=== PATIENT | female | born 1940 | race Caucasian/White ===

== ENCOUNTER → 2017-06-19 10:55 | Outpatient (CLI) | payer MEDICARE, OTHER, SELFPAY | PROVIDERS: Family Provider Internal Medicine; PCP Internal Medicine; Visit Provider Internal Medicine | DX: R00.2 Palpitations (principal) | CPT/HCPCS: 93225; 93226 ==

== ENCOUNTER → 2017-07-18 10:22 | Outpatient (CLI) | payer MEDICARE, OTHER, SELFPAY ==
[2017-07-18 11:48] LABS: Absolute Lymphocyte Count 2.29 X10^3/ul (0.83-4.51); Absolute Neutrophil Count 3.5 X10^3/uL (2.0-7.7); Basophil# 0.03 X10^3/uL; Basophil% 0.5 % (0-1); Eosinophil# 0.11 X10^3/uL; Eosinophils% 1.7 % (0-5); Hematocrit 42.7 % (37-47); Hemoglobin 13.5 g/dl (12.0-15.0); Lymphocyte # 2.29 X10^3/ul (4.0); Mean Corp Hgb Conc 31.6 g/gl (32-36); Mean Corpuscular Hgb 28.8 pg (27.0-32.0); Monocyte# 0.64 X10^3/uL; Monocyte% 9.8 % (0-10); Neutrophil # 3.46 X10^3/uL (2.7-7.7); Neutrophil % 52.8 % (47-70); Platelet Count 135 K/mm3 (150-450); RBC Distribution Width CV 13.7 % (11.6-14.6); RBC Distribution Width SD 45.4 fl (35.1-43.9); Red Blood Count 4.69 M/mm3 (4.2-5.4); White Blood Count 6.5 K/mm3 (4.4-11.0)
[2017-07-18 11:49] LABS: Differential Indicated SCAN CRITERIA MET; POSITIVE COUNT NO; POSITIVE DIFFERENTIAL NO; POSITIVE MORPHOLOGY YES
== END ==
PROVIDERS: Family Provider Internal Medicine; PCP Internal Medicine; Visit Provider Internal Medicine
DX: D69.6 Thrombocytopenia, unspecified (principal)
CPT/HCPCS: 36415; 85025

== ENCOUNTER → 2017-08-08 09:18 | Outpatient (CLI) | payer MEDICARE, OTHER, SELFPAY ==
--- NOTE | 2017-08-08 09:22 | BI_ITS ---
MAMMOGRAPHY - BILATERAL SCREENING REASON FOR EXAM: Female, 76 years old. Routine annual screening examination. PERTINENT HISTORY: Daughter with breast cancer. Sister with breast cancer. TECHNIQUE: Digital bilateral breast miguelina (3D mammographic acquisition) in the CC and MLO projections. 2-D mediolateral oblique (MLO) and craniocaudad (CC) views of both breasts were obtained. CAD: Full Field Digital Mammography with Computer Added Detection was performed. COMPARISON: Comparison is made with prior study dated August 04, 2016 and August 04, 2015. FINDINGS: Breast Composition: The breasts are heterogeneously dense, which may obscure small masses. There are no dominant masses or suspicious calcifications. No other significant abnormalities are identified. There has been no significant change since the prior study. BI/SCREENING MAMM (CAD), BILAT IMPRESSION: Stable bilateral screening mammogram. Yearly follow-up mammogram recommended. (A) ASSESSMENT CATEGORY: BIRADS Category 1: Negative. A letter regarding these results will be sent to the patient by the facility within 30 days. Approximately 10% of breast cancers are not detected by mammography. A normal mammogram should not delay biopsy of a clinically suspicious abnormality. [id number] Electronically Signed: Chris Romero MD at 15:00 EDT Tel [phone], Service support ,
--- NOTE | 2017-08-08 09:25 | BD_ITS ---
STUDY: DUAL ENERGY X-RAY ABSORPTIOMETRY / DXA REASON FOR EXAM: Female, 76 years old. The patient is postmenopausal. Loss of height. TECHNIQUE: Bone Mineral Density (BMD) measurements of lumbar spine and bilateral hips were obtained. COMPARISON: Comparison is made with prior study dated August 04, 2015. FINDINGS: Lumbar Spine (L1-L4): g/cm2 (1.021) / T-score (-1.5) / Z-score (0.3) Findings are suggestive of osteopenia with a moderate fracture risk. Left Femur Total: g/cm2 (0.819) / T-score (-1.5) / Z-score (0.4) Left Femoral Neck: g/cm2 (0.670) / T-score (-2.6) / Z-score (-0.6) Right Femur Total: g/cm2 (0.795) / T-score (-1.7) / Z-score (0.2) Right Femoral Neck: g/cm2 (0.700) / T-score (-2.4) / Z-score (-0.4) The T-Scores on the most recent prior examination were: Lumbar Spine (L1-L4): There has been improvement of bone density since the previous examination. Left Femur Total: which represents an improvement of 2.2%. Right Femur Total: which represents an improvement of 2.1%. BD/Dexa Bone Density Study IMPRESSION: The patient is considered osteoporotic as outlined below according to World Giorgio Organization (WHO) criteria with a high fracture risk. There has been improvement of bone density since the previous examination. Reference Information: The T-score is the number of standard deviations above or below the standard which is normal for young adults at their peak bone mineral density. The World Health Organization (WHO) interprets the T-scores as follows: Above -1 Normal bone density Between -1 and -2.5 Osteopenia Equal to / or below -2.5 Osteoporosis As a practical clinical guideline, osteopenia may be graded as follows: Mild -1 through -1.5 Moderate -1.6 through -2.0 Severe -2.1 through -2.4 The Z-score is the number of standard deviations above or below age-matched controls. A Z-score of less than -1.5 would be considered abnormal. References: 1. NIH Osteoporosis and Related Bone Diseases http://www.osteo.org 2. International Society for Clinical Densitometry http://www.iscd.org 3. National Osteoporosis Foundation http://www.nof.org Electronically Signed: Chris Romero MD at 8:34 EDT Tel [phone], Service support ,
== END ==
PROVIDERS: Family Provider Internal Medicine; PCP Internal Medicine; Visit Provider Nurse Practitioner
DX: M81.0 Age-related osteoporosis without current pathological fracture (principal); Z12.31 Encounter for screening mammogram for malignant neoplasm of breast
CPT/HCPCS: 77063; 77067; 77080

== ENCOUNTER → 2017-09-06 09:52 | Outpatient (CLI) | payer MEDICARE, OTHER, SELFPAY ==
[2017-09-06 10:00] VITALS: BP 168/80; PULSE 84; RESP 16; TEMP 36.7; O2SAT 97; BMI 23.8
[2017-09-06] MEDS: DENOSUMAB 60 MG/ML ML SQ (10:06)
== END ==
PROVIDERS: Family Provider Internal Medicine; PCP Internal Medicine; Visit Provider Nurse Practitioner
DX: M81.0 Age-related osteoporosis without current pathological fracture (principal)
CPT/HCPCS: 96372; J0897

== ENCOUNTER → 2018-03-12 13:26 | Outpatient (CLI) | payer MEDICARE, SELFPAY ==
[2018-03-12] MEDS: DENOSUMAB 60 MG/ML ML SQ (13:47)
[2018-03-12 13:51] VITALS: BP 150/86; PULSE 95; RESP 16; TEMP 36.7; O2SAT 99
== END ==
PROVIDERS: Family Provider Internal Medicine; PCP Internal Medicine; Visit Provider Nurse Practitioner
DX: M81.0 Age-related osteoporosis without current pathological fracture (principal)
CPT/HCPCS: 96372; J0897

== ENCOUNTER → 2018-03-13 14:41 | Outpatient (CLI) | payer MEDICARE, SELFPAY ==
--- NOTE | 2018-03-13 14:46 | RAD_ITS ---
STUDY: X-RAY - RIGHT FOOT CLINICAL: Female, 77 years old. No injury. Pain across top of foot. TECHNIQUE: 3 view(s) of the foot. COMPARISON: None. FINDINGS: Severe osteopenia. Mild DJD interphalangeal joints of each digit. Mild 1st digit metatarsophalangeal joint hallux valgus, small bunion, mild DJD of the articulation. There is mild DJD of the intertarsal articulations. Preserved arch. Plantar calcaneal spur with mild calcifications in the proximal plantar aponeurosis. Possibly sequela of plantar fasciitis. There are prominent peripheral arterial calcifications, most notable in the dorsalis pedis artery. There is no apparent soft tissue swelling. RAD/Foot min 3 Views IMPRESSION: Chronic degenerative features as described above. No acute radiographic abnormality is evident. Electronically Signed: Heriberto Dennison MD at 15:37 EST Tel , Service support ,
--- OUTSIDE RECORDS SUMMARY | 2018-05-15 20:50 | XMS RPT_ITS ---
:1940 Author Organization OHIP Support Name Relationship Address Phone CHRISTA FISCHER Unavailable Unavailable + JOSEPH FISCHER Unavailable [address] + [place] [address] R Unavailable Unavailable Unavailable CHRISTA FISCHER Unavailable Unavailable + JOSEPH FISCHER Unavailable [address] + [place] [address] R Unavailable Unavailable Unavailable ANYI CABRERA Unavailable [address] + [place] [address] JOSEPH FISCHER Unavailable [address] + [place] [address] R Unavailable Unavailable Unavailable ANYI CABRERA Unavailable [address] + [place] [address] JOSEPH FISCHER Unavailable [address] + [place] [address] R Unavailable Unavailable Unavailable DEBORAH ANYI Unavailable [address] + [place] [address] JOSEPH FISCHER Unavailable [address] + [place] [address] R Unavailable Unavailable Unavailable DEBORAH ANYI Unavailable [address] + [place] [address] ROYCE FISCHERIE Unavailable [address] + [place] [address] R Unavailable Unavailable Unavailable DEBORAH ANYI Unavailable [address] + [place] [address] ROYCE FISCHERIE Unavailable [address] + [place] [address] R Unavailable Unavailable Unavailable Care Team Providers Name Role Phone Kortney Montero Attending Unavailable Ryann Peralta MD Referring Unavailable Ciesa, Kortney Consulting Unavailable Ciesa, Kortney Attending Unavailable Ciesa, Kortney Referring Unavailable Luis, Margie Primary Care Unavailable Ciesa, Kortney Attending Unavailable Ciesa, Kortney Referring Unavailable Luis, Margie Primary Care Unavailable Luis, Margie Attending Unavailable Luis, Margie Referring Unavailable Luis, Margie Primary Care Unavailable Yong Drapre Attending Unavailable Luis, Margie Referring Unavailable Luis, Margie Attending Unavailable Luis, Margie Referring Unavailable Luis, Margie Primary Care Unavailable Ciesa, Kortney Attending Unavailable Luis, Margie Primary Care Unavailable Ciesa, Kortney Attending Unavailable Ciesa, Kortney Referring Unavailable Luis, Margie Primary Care Unavailable PROBLEMS PROBLEMS DATE TYPE CONDITION / CODE ATTENDING STATUS SOURCE 08/08/2017 Unknown M81.0 - Kortney Montero Active [place] 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 Hospital without current Repository pathological fracture / M81.0(ICD-10) 08/08/2017 Unknown Z12.31 - Encounter Kortney Montero Zakiya [facility]anoster for screening [facility] mammogram for Hospital malignant neoplasm Repository of breast / Z12.31(ICD-10) 07/18/2017 Unknown D69.6 - Luis Active [place] Thrombocytopenia, Margie Community unspecified / Hospital D69.6(ICD-10) Repository 07/06/2017 Unknown R00.2 - Yong Draper Active [place] Palpitations / Community R00.2(ICD-10) Hospital Repository PROCEDURES PROCEDURES No Procedure Records FoundRESULTS RESULTS FOOT MIN 3 VIEWS Observed: 03/13/2018 Status: F Source: [place] 2:46 PM [facility] REPOSITORY [facility] Services [address] [place] [address] Foot min 3 Views MR#: [id number] Acct: [id number] Name: GADIEL CABRERA Rep #: [id number] : 1940 F 77 From: Heriberto Dennison MD PCP: Margie Smith DO Status: REG CLI Study: Foot min 3 Views Date of Exam: 03/13/18 Exam# [id number] Ordering Dr: Kortney Montero BREAKER TENDER-C STUDY: X-RAY - RIGHT FOOT CLINICAL: Female, 77 years old. No injury. Pain across top of foot. TECHNIQUE: 3 view(s) of the foot. COMPARISON: None. FINDINGS: Severe osteopenia. Mild DJD interphalangeal joints of each digit. Mild 1st digit metatarsophalangeal joint hallux valgus, small bunion, mild DJD of the articulation. There is mild DJD of the intertarsal articulations. Preserved arch. Plantar calcaneal spur with mild calcifications in the proximal plantar aponeurosis. Possibly sequela of plantar fasciitis. There are prominent peripheral arterial calcifications, most notable in the dorsalis pedis artery. There is no apparent soft tissue swelling. RAD/Foot min 3 Views IMPRESSION: Chronic degenerative features as described above. No acute radiographic abnormality is evident. Electronically Signed: Heriberto Dennison MD at 15:37 EST Tel , Service support , CC: Kortney Montero BREAKER TENDER; Margie Smith DO Cable Television Program Director: Signed SCREENING MAMM (CAD), Observed: 08/08/2017 Status: F Source: [facility] 9:22 AM [facility] [place] [facility] Imaging Services [address] [place] [address] SCREENING MAMM (CAD), BILAT MR#: [id number] Acct: [id number] Name: GADIEL CABRERA Rep #: [id number] : 1940 F 76 From: Chris Romero MD PCP: Margie Smith DO Status: REG CLI Study: SCREENING MAMM (CAD), BILAT Date of Exam: 08/08/17 Exam# [id number] Ordering Dr: Kortney Montero MAMMOGRAPHY - BILATERAL SCREENING REASON FOR EXAM: Female, 76 years old. Routine annual screening examination. PERTINENT HISTORY: Daughter with breast cancer. Sister with breast cancer. TECHNIQUE: Digital bilateral breast miguelina (3D mammographic acquisition) in the CC and MLO projections. 2-D mediolateral oblique (MLO) and craniocaudad (CC) views of both breasts were obtained. CAD: Full Field Digital Mammography with Computer Added Detection was performed. COMPARISON: Comparison is made with prior study dated August 04, 2016 and August 04, 2015. FINDINGS: Breast Composition: The breasts are heterogeneously dense, which may obscure small masses. There are no dominant masses or suspicious calcifications. No other significant abnormalities are identified. There has been no significant change since the prior study. BI/SCREENING MAMM (CAD), BILAT IMPRESSION: Stable bilateral screening mammogram. Yearly follow-up mammogram recommended. (A) ASSESSMENT CATEGORY: BIRADS Category 1: Negative. A letter regarding these results will be sent to the patient by the facility within 30 days. Approximately 10% of breast cancers are not detected by mammography. A normal mammogram should not delay biopsy of a clinically suspicious abnormality. [id number] Electronically Signed: Chris Romero MD at 15:00 EDT Tel [phone], Service support , CC: Kortney Montero NP; Margie Smith DO Cable Television Program Director: Signed DEXA BONE DENSITY Observed: 08/08/2017 Status: F Source: [place] STUDY 9:22 AM [facility] [place] [facility] Imaging Services [address] [place] [address] Dexa Bone Density Study MR#: [id number] Acct: [id number] Name: GADIEL CABRERA Rep #: [id number] : 1940 F 76 From: Chris Romero MD PCP: Luis DO,Margie Status: REG CLI Study: Dexa Bone Density Study Date of Exam: 08/08/17 Exam# [id number] Ordering Dr: Kortney Montero STUDY: DUAL ENERGY X-RAY ABSORPTIOMETRY / DXA REASON FOR EXAM: Female, 76 years old. The patient is postmenopausal. Loss of height. TECHNIQUE: Bone Mineral Density (BMD) measurements of lumbar spine and bilateral hips were obtained. COMPARISON: Comparison is made with prior study dated August 04, 2015. FINDINGS: Lumbar Spine (L1-L4): g/cm2 (1.021) / T-score (-1.5) / Z-score (0.3) Findings are suggestive of osteopenia with a moderate fracture risk. Left Femur Total: g/cm2 (0.819) / T-score (-1.5) / Z- score (0.4) Left Femoral Neck: g/cm2 (0.670) / T-score (-2.6) / Z- score (-0.6) Right Femur Total: g/cm2 (0.795) / T-score (-1.7) / Z- score (0.2) Right Femoral Neck: g/cm2 (0.700) / T-score (-2.4) / Z-score (-0.4) The T-Scores on the most recent prior examination were: Lumbar Spine (L1-L4): There has been improvement of bone density since the previous examination. Left Femur Total: which represents an improvement of 2.2%. Right Femur Total: which represents an improvement of 2.1%. BD/Dexa Bone Density Study IMPRESSION: The patient is considered osteoporotic as outlined below according to World Giorgio Organization (WHO) criteria with a high fracture risk. There has been improvement of bone density since the previous examination. Reference Information: The T-score is the number of standard deviations above or below the standard which is normal for young adults at their peak bone mineral density. The World Health Organization (WHO) interprets the T-scores as follows: Above -1 Normal bone density Between -1 and -2.5 Osteopenia Equal to / or below -2.5 Osteoporosis As a practical clinical guideline, osteopenia may be graded as follows: Mild -1 through -1.5 Moderate -1.6 through -2.0 Severe -2.1 through -2.4 The Z-score is the number of standard deviations above or below age-matched controls. A Z-score of less than -1.5 would be considered abnormal. References: 1. NIH Osteoporosis and Related Bone Diseases http://www.osteo.org 2. International Society for Clinical Densitometry http://www.iscd.org 3. National Osteoporosis Foundation http://www.nof.org Electronically Signed: Chris Romero MD at 8:34 EDT Tel [phone], Service support , CC: Kortney Montero NP; Margie Smith DO Cable Television Program Director: Signed CBC W/DIFF, AUTOMATED Collected: 07/18/2017 Status: F Source: [place] 10:29 AM [facility] [place] TYPE CODE TESTS RESULT OUT OF RANGE REFERENCE UNITS LAB L100.1000 4.4-11.0 K/mm3 Normal WBC 6.5 LAB L100.1200 4.2-5.4 M/mm3 Normal RBC 4.69 LAB L100.1300 12.0-15.0 g/dl Normal HGB 13.5 LAB L100.1400 37-47 % Normal HCT 42.7 LAB L100.1500 81-99 fL Normal MCV 91.0 LAB L100.1600 27.0-32.0 pg Normal MCH 28.8 LAB L100.1700 32-36 g/gl Low MCHC 31.6 LAB L100.1810 11.6-14.6 % Normal RDW CV 13.7 LAB L100.1820 35.1-43.9 fl High RDW SD 45.4 LAB L100.1900 150-450 K/mm3 Low PLT 135 LAB L100.2100 47-70 % Normal NEUT% 52.8 LAB L100.2200 19-41 % Normal LY% 35.0 LAB L100.2300 0-10 % Normal MONO% 9.8 LAB L100.2400 0-5 % Normal EO% 1.7 LAB L100.2500 0-1 % Normal BASO% 0.5 LAB L100.2550 0.0-0.9 % Normal IM GRAN % 0.200 Result Comment: IG% - Immature Granulocytes (promyelocytes, myelocytes and metamyelocytes) > 1% indicates that a LEFT SHIFT is Present. LAB L100.2620 2.0-7.7 X10 3/uL Normal Absolute Neut 3.5 LAB L100.2720 0.83-4.51 X10 3/ul Normal Absolute Lymph 2.29 LAB L100.4500 SMEAR Normal COMMENT Result Comment: PLATELETS SLIGHTLY DECREASED Performed By: #### L100.0100 #### [facility] [address] [place], [address] ALLERGIES ALLERGIES DATE TYPE / CODE NAME / CODE REACTION SEVERITY SOURCE 03/09/2017 Drug amoxicillin Other [place] Allergy/517756279(S /[id number] [facility]) (RXNORM) Hospital Repository 03/09/2017 Drug citalopram/ Other Unknown [place] Allergy/896734595(S [id number]( [facility]) RXNORM) Hospital Repository 03/09/2017 Miscellaneous rufen Other Unknown [place] Allergy/584553246([facility]) Hospital Repository ENCOUNTERS ENCOUNTERS ADMIT/DISCHARGE ACCOUNT ADMITTING ENCOUNTER LOCATION SOURCE NUMBER CLASS 03/13/2018 [id number] Ambulatory [place] 8 [facility] ing:HPRAD Repository 03/13/2018 [id number] Ambulatory Building:[facility] [place] Practices Repository 03/12/2018 [id number] Ambulatory [place] 9 [facility] ing:MEDOUTP Repository 09/06/2017 [id number] Ambulatory [place] 2 [facility] ing:MEDOUTP Repository 08/08/2017 [id number] Ambulatory [place] 4 [facility] ing:OPBD Repository 07/18/2017 [id number] Ambulatory [place] 7 [facility] ing:LAB Repository 06/19/2017 [id number] Ambulatory [place] 9 [facility] ing:PSN Repository 06/19/2017 [id number] Ambulatory BMSBuilding:W [place] 4 [facility] Repository PAYERS PAYERS ENCOUNTER GUARANTOR PAYER SUBSCRIBER SOURCE 03/13/2018 GADIEL E Primary GADIEL E [place] [id number] Insurance:AETNA KINCAIDDOB: [facility] Number: [id number] [id number] Repository [address]Iod: (330) Date:5960-09-31[phone] (HP) [id number] FEROZ RAMOS [address]ZU: 03/13/2018 Secondary NOT GIVENUNK [place] Insurance:SELF PAY [facility] Number: Effective Repository Date:2018-03-13 03/13/2018 Gadiel E Primary Gadiel E OHIP Practices KincaidDOB: Insurance:Aetna Life KincaidDOB: Repository [id number] [facility]/MedicarePolicy [id number] [place] Number: 1 [place], [place] [id number] [place], [place] [address]Hgv: (330) Date:0034-39-70Pwpq 85[address]Ngz: Name:[facility] [address]Rx [phone] (HP) (HP)Tel: ([phone]) FEROZ Ramos [phone]: [phone] () 03/13/2018 Secondary Gadiel E OHIP Practices Insurance:Humana/Suppl KincaidDOB: Repository [facility] [id number] Number: 1 [place] [id number] [place], [place] Date:8718-26-54Nhug [address]Cne: (330) Name:[facility] [phone] (HP) [address], [place] [address]CZ: 03/12/2018 GADIEL E Primary GADIEL E [place] [id number] Insurance:AETNA KINCAIDDOB: Community [address] MCRPolicy Number: [id number], [place] [id number] Repository [address]Sdd: (330) Date:4609-19-81CE [phone] () [id number] FEROZ RAMOS [id number]: 03/12/2018 Secondary NOT GIVENUNK [place] Insurance:SELF PAY [facility] Number: Effective Repository Date:2017-09-06 09/06/2017 ANYI L Primary GADIEL E [place] [id number] Insurance:MEDICARE KINCAIDDOB: [facility] [address] BPolicy Number: [id number], [place] [id number] Repository [address]Jbj: (330) Date:2017-08-09 [phone] () 09/06/2017 Secondary GADIEL E [place] Insurance:HUMANA KINCAIDDOB: [facility] [id number] Hospital Number: Repository [id number] Date:6219-54-09EG [address] [place] [id number]: 09/06/2017 Tertiary NOT GIVENUNK [place] Insurance:SELF PAY [facility] Number: Effective Repository Date:2017-08-09 08/08/2017 ANYI L Primary GADIEL E [place] [id number] Insurance:MEDICARE KINCAIDDOB: [facility] [address] olicy Number: [id number], [place] [id number] Repository [address]Mvk: (330) Date:2017-06-05 [phone] () 08/08/2017 Secondary GADIEL E [place] Insurance:HUMANA KINCAIDDOB: [facility] [id number] Hospital Number: Repository [id number] Date:6335-54-20QT [address] [place] [phone]: 08/08/2017 Tertiary NOT GIVENUNK [place] Insurance:SELF PAY [facility] Number: Effective Repository Date:2017-06-05 07/18/2017 ANYI L Primary GADIEL E [place] [id number] Insurance:MEDICARE KINCAIDDOB: Community [address] BPolicy Number: [id number], [place] [id number] Repository [address]Iwa: 330) Date:2017-07-18 [phone] () 07/18/2017 Secondary GADIEL E [place] Insurance:HUMANA KINCAIDDOB: [facility] [id number] Hospital Number: Repository [id number] Date:[id number] [address]CX: 07/18/2017 Tertiary NOT GIVENUNK [place] Insurance:SELF PAY [facility] Number: Effective Repository Date:2017-07-18 06/19/2017 ANYI L Primary GADIEL E [place] [id number] Insurance:MEDICARE KINCAIDDOB: Community [address] BPolicy Number: [id number], [place] [id number] Repository [address]Eos: 330) Date:2017-06-15 [phone] () 06/19/2017 Secondary GADIEL E [place] Insurance:HUMANA KINCAIDDOB: [facility] [id number] Hospital Number: Repository [id number] Date:[id number] [address]ZD: 06/19/2017 Tertiary NOT GIVENUNK [place] Insurance:SELF PAY [facility] Number: Effective Repository Date:2017-06-15 06/19/2017 ANYI L Primary GADIEL E [place] [id number] Insurance:MEDICARE KINCAIDDOB: [facility] [address] olicy Number: [id number], [place] [id number] Repository [address]Dke: 330) Date:2017-06-15 [phone] () 06/19/2017 Secondary GADIEL E [place] Insurance:HUMANA KINCAIDDOB: [facility] [id number] Hospital Number: Repository [id number] Date:2089-36-14[address]LUIFVRDDN, [place] [address]BT: 06/19/2017 Tertiary NOT GIVENUNK [place] Insurance:SELF PAY [facility]: Effective Repository Date:2017-06-19
== END ==
PROVIDERS: Family Provider Internal Medicine; PCP Internal Medicine; Referring Provider Nurse Practitioner; Visit Provider Nurse Practitioner
DX: M79.671 Pain in right foot (principal)
CPT/HCPCS: 73630

== ENCOUNTER → 2018-07-04 07:21 | Outpatient (CLI) | payer MEDICARE, SELFPAY ==
[2018-07-04 07:51] LABS: Absolute Lymphocyte Count 3.65 X10^3/ul (0.83-4.51); Absolute Neutrophil Count 3.2 X10^3/uL (2.0-7.7); Basophil# 0.04 X10^3/uL; Basophil% 0.5 % (0-1); Eosinophil# 0.22 X10^3/uL; Eosinophils% 2.8 % (0-5); Hematocrit 43.3 % (37-47); Lymphocyte # 3.65 X10^3/ul (4.0); Mean Corp Hgb Conc 32.3 g/gl (32-36); Mean Corpuscular Volume 89.8 fL (81-99); Mean Platelet Vol. 10.2 fl (6.2-12.0); Monocyte# 0.68 X10^3/uL; Monocyte% 8.8 % (0-10); Neutrophil # 3.17 X10^3/uL (2.7-7.7); Neutrophil % 40.8 % (47-70); Platelet Count 202 K/mm3 (150-450); RBC Distribution Width CV 13.4 % (11.6-14.6); RBC Distribution Width SD 43.7 fl (35.1-43.9); Red Blood Count 4.82 M/mm3 (4.2-5.4); White Blood Count 7.8 K/mm3 (4.4-11.0)
[2018-07-04 07:55] LABS: POSITIVE COUNT NO; POSITIVE DIFFERENTIAL NO; POSITIVE MORPHOLOGY NO
[2018-07-04 07:57] LABS: ALB/GLOB Ratio 1.1 RATIO (0.9-2.4); AST(SGOT) 20 U/L (15-37); Alanine Aminotransfer ALT/SGPT 24 U/L (13-56); Albumin, Serum 3.9 g/dL (3.2-5.0); Alkaline Phosphatase 63 U/L (45-117); Anion Gap 6 (5-15); BUN 21 mg/dL (7-18); Calcium,Total 8.8 mg/dL (8.5-10.1); Chloride 105 mmol/L (98-107); Creatinine, Serum 0.81 mg/dL (0.55-1.02); EST Glomerular Filtration Rate 73 mL/min (>60); Est Glom Filt Rate - Afr Amer 88 mL/min (>60); Globulin 3.4 g/dL (2.2-4.2); Glucose 102 mg/dL (74-106); Potassium 3.9 mmol/L (3.5-5.1); Protein, Total 7.3 g/dL (6.4-8.2); Sodium Level 141 mmol/L (136-145)
== END ==
PROVIDERS: Family Provider Internal Medicine; PCP Internal Medicine; Referring Provider Nurse Practitioner; Visit Provider Nurse Practitioner
DX: I10 Essential (primary) hypertension (principal)
CPT/HCPCS: 36415; 80053; 85025

== ENCOUNTER → 2018-08-09 | Outpatient (CLI) | payer MEDICARE, SELFPAY ==
--- NOTE | 2018-08-09 10:19 | BI_ITS ---
MAMMOGRAPHY - BILATERAL SCREENING REASON FOR EXAM: Female, 77 years old. Routine annual screening examination. PERTINENT HISTORY: Daughter with breast cancer. Sister with breast cancer. TECHNIQUE: Digital bilateral breast jodi (3D mammographic acquisition) in the CC and MLO projections. 2-D mediolateral oblique (MLO) and craniocaudad (CC) views of both breasts were obtained. CAD: Full Field Digital Mammography with Computer Added Detection was performed. COMPARISON: Comparison is made with prior study August 08, 2017 and August 04, 2016. FINDINGS: Breast Composition: The breasts are heterogeneously dense, which may obscure small masses. There are no dominant masses or suspicious calcifications. No other significant abnormalities are identified. There has been no significant change since the prior study. BI/SCREEN MAMM (CAD) W/JODI BILAT IMPRESSION: Stable bilateral screening mammogram. Yearly follow-up mammogram recommended. (A) ASSESSMENT CATEGORY: BIRADS Category 1: Negative. A letter regarding these results will be sent to the patient by the facility within 30 days. Approximately 10% of breast cancers are not detected by mammography. A normal mammogram should not delay biopsy of a clinically suspicious abnormality. [id number] Electronically Signed: Chris Romero, at 12:20 EDT , Service support ,
== END | disposition home or self-care (01) ==
LOC: OPBI 10:18
PROVIDERS: Family Provider Internal Medicine; PCP Internal Medicine; Referring Provider Nurse Practitioner; Visit Provider Nurse Practitioner
DX: Z12.31 Encounter for screening mammogram for malignant neoplasm of breast (principal)
CPT/HCPCS: 77063; 77067

== ENCOUNTER → 2019-02-11 10:10 | Outpatient (CLI) | payer MEDICARE, SELFPAY ==
[2017-09-06 10:00] VITALS: BMI 23.8
[2019-02-11 11:27] LABS: Absolute Lymphocyte Count 2.34 X10^3/uL (0.83-4.51); Absolute Neutrophil Count 3.8 X10^3/uL (2.0-7.7); Basophil# 0.04 X10^3/uL; Basophil% 0.6 % (0-1); Eosinophil# 0.08 X10^3/uL; Eosinophils% 1.1 % (0-5); Hematocrit 42.5 % (37-47); Hemoglobin 13.5 g/dL (12.0-15.0); Lymphocyte # 2.34 X10^3/ul (4.0); Lymphocyte % 33.4 % (19-41); Mean Corp Hgb Conc 31.8 g/dL (32-36); Mean Corpuscular Volume 91.2 fL (81-99); Monocyte# 0.72 X10^3/uL; Monocyte% 10.3 % (0-10); NRBC Flagged by Analyzer 0 % (0-5); Neutrophil % 54.3 % (47-70); POSITIVE COUNT YES; RBC Distribution Width CV 13.4 % (11.6-14.6); RBC Distribution Width SD 45.3 fl (35.1-43.9); Red Blood Count 4.66 M/mm3 (4.2-5.4)
[2019-02-11 11:35] LABS: Differential Indicated SCAN CRITERIA MET
[2019-02-11 13:12] LABS: Red Cell Morphology NORM C+C NORMAL (NORM C&C)
[2019-02-12 00:50] LABS: Platelet Estimate ADEQUATE (ADEQ)
[2019-02-12 01:04] LABS: Platelet Morphology CLUMPED
== END ==
PROVIDERS: Family Provider Internal Medicine; PCP Internal Medicine; Referring Provider Nurse Practitioner; Visit Provider Nurse Practitioner
DX: D69.6 Thrombocytopenia, unspecified (principal)
CPT/HCPCS: 36415; 85025

== ENCOUNTER → 2019-08-13 10:29 | Outpatient (CLI) | payer MEDICARE, SELFPAY ==
--- NOTE | 2019-08-13 10:32 | BI_ITS ---
MAMMOGRAPHY - BILATERAL SCREENING 3-D TOMOSYNTHESIS REASON FOR EXAM: Female, 78 years old. Routine screening PERTINENT HISTORY: FAM HX SISTER AGE 44, DAUGHTER AGE 43 -- NO SX -- BILAT MOLES MARKED. TECHNIQUE: 2-D mammograms and 3-D Tomosynthesis of the breast (s) were performed. CAD was performed. COMPARISON: 08/09/2018 FINDINGS: The breast composition is heterogeneously dense that can obscure small breast masses. Scattered benign calcifications are seen. No dense spiculated masses or suspicious microcalcifications are identified. No architectural distortion is identified. There is no skin thickening or retraction. There has been no significant change since the prior study. BI/SCREEN MAMM (CAD) W/JODI BILAT IMPRESSION: No mammographic signs of malignancy. Routine yearly mammograms recommended. ASSESSMENT CATEGORY: BIRADS Category 1: Negative. A letter regarding these results will be sent to the patient by the facility within 30 days. FOLLOW UP RECOMMENDATION: Yearly follow up mammogram recommended. (A) Approximately 10% of breast cancers are not detected by mammography. A normal mammogram should not delay biopsy of a clinically suspicious abnormality. Electronically Signed: Ahsan Smith MD at 12:40 EDT , Service support ,
--- NOTE | 2019-08-13 10:33 | BD_ITS ---
STUDY: DUAL ENERGY X-RAY ABSORPTIOMETRY / DXA REASON FOR EXAM: Female, 78 years old. 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 COMPARISON: Comparison is made with prior examination dated August 08, 2017. FINDINGS: Lumbar Spine (L1-L4): g/cm2 (1.004) / T-score (-1.6) / Z-score (0.2) Findings are suggestive of osteopenia with a moderate fracture risk. Increased kyphosis. Left Femur Total: g/cm2 (0.81 ) / T-score (-1.5) / Z-score (0.5) Left Femoral Neck: g/cm2 (0.693) / T-score (-2.5) / Z-score (-0.3) Right Femur Total: g/cm2 (0.824) / T-score (-1.5) / Z-score (0.5) Right Femoral Neck: g/cm2 (0.728) / T-score (-2.2) / Z-score (-0.1) The T-Scores on the most recent prior examination were: Lumbar Spine (L1-L4): There has been worsening of bone density since the previous examination. Left Femur Total: which represents no significant change. . Right Femur Total: which represents an improvement of 3.6%. BD/Dexa Bone Density Study IMPRESSION: The patient is considered osteoporotic as outlined below according to World [place] Organization (WHO) criteria with a high fracture risk. There has been improvement of bone density since the previous examination. Reference Information: The T-score is the number of standard deviations above or below the standard which is normal for young adults at their peak bone mineral density. The World Health Organization (WHO) interprets the T-scores as follows: Above -1 Normal bone density Between -1 and -2.5 Osteopenia Equal to / or below -2.5 Osteoporosis As a practical clinical guideline, osteopenia may be graded as follows: Mild -1 through -1.5 Moderate -1.6 through -2.0 Severe -2.1 through -2.4 The Z-score is the number of standard deviations above or below age-matched controls. A Z-score of less than -1.5 would be considered abnormal. References: 1. NIH Osteoporosis and Related Bone Diseases http://www.osteo.org 2. International Society for Clinical Densitometry http://www.iscd.org 3. National Osteoporosis Foundation http://www.nof.org Electronically Signed: Chris Romero, at 8:56 EDT , Service support ,
== END ==
PROVIDERS: PCP Internal Medicine; Referring Provider Nurse Practitioner; Visit Provider Nurse Practitioner
DX: Z12.31 Encounter for screening mammogram for malignant neoplasm of breast (principal); M81.0 Age-related osteoporosis without current pathological fracture
CPT/HCPCS: 77063; 77067; 77080

== ENCOUNTER → 2019-09-10 10:27 | Outpatient (CLI) | payer MEDICARE, SELFPAY ==
[2017-09-06 10:00] VITALS: BMI 23.8
[2019-09-10 11:48] LABS: POSITIVE COUNT YES
[2019-09-10 12:33] LABS: Differential Indicated SCAN CRITERIA MET
== END ==
PROVIDERS: PCP Internal Medicine; Referring Provider Nurse Practitioner; Visit Provider Nurse Practitioner
DX: D69.6 Thrombocytopenia, unspecified (principal)
CPT/HCPCS: 36415; 85049

== ENCOUNTER → 2020-04-20 10:46 | Outpatient (CLI) | payer MEDICARE, SELFPAY ==
[2017-09-06 10:00] VITALS: BMI 23.8
[2020-04-20 13:31] LABS: Platelet Count 138 K/mm3 (150-450)
== END ==
PROVIDERS: PCP Internal Medicine; Referring Provider Nurse Practitioner; Visit Provider Nurse Practitioner
DX: D69.6 Thrombocytopenia, unspecified (principal); I10 Essential (primary) hypertension
CPT/HCPCS: 85049

== ENCOUNTER → 2020-08-13 09:55 | Outpatient (CLI) | payer MEDICARE, SELFPAY ==
--- NOTE | 2020-08-13 09:58 | BI_ITS ---
MAMMOGRAPHY - BILATERAL SCREENING 3-D TOMOSYNTHESIS REASON FOR EXAM: Female, 79 years old. SCREENING PERTINENT HISTORY: No significant family history. TECHNIQUE: 2-D mammograms and 3-D Tomosynthesis of the breast (s) were performed. CAD was performed. COMPARISON: 08/13/2019. FINDINGS: The breast composition is of heterogeneous fibroglandular tissue Scattered benign arterial calcifications are seen. No dense spiculated masses or suspicious microcalcifications are identified. No architectural distortion is identified. There is no skin thickening or retraction. Multiple benign looking nodules seen particularly in the right breast There has been no significant change since the prior study since the study of 08/12/2021 BI/SCRN MAMM (CAD)W/JODI BILAT IMPRESSION: No mammographic signs of malignancy. Routine yearly mammograms recommended. BIRADS-ll. FOLLOW UP RECOMMENDATION: Yearly follow up mammogram recommended. (A) Approximately 10% of breast cancers are not detected by mammography. A normal mammogram should not delay biopsy of a clinically suspicious abnormality. Electronically Signed: Maki Caban, at 12:00 EDT Tel , Service support ,
== END ==
PROVIDERS: PCP Internal Medicine; Referring Provider Nurse Practitioner; Visit Provider Nurse Practitioner
DX: Z12.31 Encounter for screening mammogram for malignant neoplasm of breast (principal)
CPT/HCPCS: 77063; 77067

== ENCOUNTER → 2021-01-20 09:55 | Outpatient (CLI) | payer MEDICARE, SELFPAY ==
[2021-01-20 10:39] LABS: Hematocrit 41.4 % (37-47); Hemoglobin 13.1 g/dL (12.0-15.0); Mean Corp Hgb Conc 31.6 g/dL (32-36); Mean Corpuscular Hgb 28.4 pg (27.0-32.0); Mean Corpuscular Volume 89.6 fL (81-99); Mean Platelet Vol. 12.6 fl (6.2-12.0); POSITIVE COUNT YES; Platelet Count 171 K/mm3 (150-450); RBC Distribution Width CV 13.5 % (11.6-14.6); RBC Distribution Width SD 44.2 fl (35.1-43.9); Red Blood Count 4.62 M/mm3 (4.2-5.4); White Blood Count 7.8 K/mm3 (4.4-11.0)
[2021-01-20 10:41] LABS: Scan Indicated on CBC? Y/N YES- FLAGS NOTED
[2021-01-20 11:06] LABS: Vitamin D,25 Hydroxy 52.1 ng/mL
[2021-01-20 11:10] LABS: ALB/GLOB Ratio 0.9 RATIO (0.9-2.4); AST(SGOT) 19 U/L (15-37); Alanine Aminotransfer ALT/SGPT 20 U/L (13-56); Albumin, Serum 3.5 g/dL (3.2-5.0); Alkaline Phosphatase 69 U/L (45-117); Anion Gap 8 (5-15); BUN 19 mg/dL (7-18); BUN/Creat Ratio 23.5 RATIO (10-20); Calcium,Total 9.1 mg/dL (8.5-10.1); Chloride 101 mmol/L (98-107); Creatinine, Serum 0.81 mg/dL (0.55-1.02); EST Glomerular Filtration Rate 72 mL/min (>60); Est Glom Filt Rate - Afr Amer 87 mL/min (>60); Globulin 3.9 g/dL (2.2-4.2); Glucose 103 mg/dL (74-106); Potassium 3.8 mmol/L (3.5-5.1); Protein, Total 7.4 g/dL (6.4-8.2); Sodium Level 137 mmol/L (136-145); Thyroid Stim Hormone (TSH) 1.22 uIU/mL (0.358-3.74)
== END ==
PROVIDERS: PCP Internal Medicine; Referring Provider Nurse Practitioner; Visit Provider Nurse Practitioner
DX: D69.6 Thrombocytopenia, unspecified (principal); E55.9 Vitamin D deficiency, unspecified; I10 Essential (primary) hypertension
CPT/HCPCS: 36415; 80053; 82306; 84443; 85027

== ENCOUNTER → 2021-08-24 | Outpatient (CLI) | payer MEDICARE, SELFPAY ==
--- NOTE | 2021-08-24 10:26 | BI_ITS ---
MAMMOGRAPHY - BILATERAL SCREENING REASON FOR EXAM: Female, 80 years old. Routine annual screening examination. PERTINENT HISTORY: Daughter with breast cancer. Sister with breast cancer. TECHNIQUE: Digital bilateral breast jodi (3D mammographic acquisition) in the CC and MLO projections. 2-D mediolateral oblique (MLO) and craniocaudad (CC) views of both breasts were obtained. CAD: Full Field Digital Mammography with Computer Added Detection was performed. COMPARISON: Comparison is made with prior study dated 08/13/2020 and 08/13/2019. FINDINGS: Breast Composition: The breasts are heterogeneously dense, which may obscure small masses. There are no dominant masses or suspicious calcifications. No other significant abnormalities are identified. There has been no significant change since the prior study. BI/SCRN MAMM (CAD)W/JODI BILAT IMPRESSION: Stable bilateral screening mammogram. Yearly follow-up mammogram recommended. (A) ASSESSMENT CATEGORY: BIRADS Category 1: Negative. A letter regarding these results will be sent to the patient by the facility within 30 days. Approximately 10% of breast cancers are not detected by mammography. A normal mammogram should not delay biopsy of a clinically suspicious abnormality. [id number] Electronically Signed: Chris Romero MD at 12:45 EDT ,
--- NOTE | 2021-08-24 10:30 | BD_ITS ---
STUDY: DUAL ENERGY X-RAY ABSORPTIOMETRY / DXA REASON FOR EXAM: Female, 80 years old. M810. The patient is postmenopausal. TECHNIQUE: Bone Mineral Density (BMD) measurements of lumbar spine and bilateral hips were obtained. COMPARISON: Comparison is made with prior study dated 08/13/2019. FINDINGS: Lumbar Spine (L1-L4): g/cm2 (0.944) / T-score (-1.2) / Z-score (1.6) Findings are suggestive of osteopenia with a low fracture risk. Left Femur Total: g/cm2 (0.771) / T-score (-1.4) / Z-score (0.8) Left Femoral Neck: g/cm2 (0.537) / T-score (-2.8) / Z-score (-0.4) Right Femur Total: g/cm2 (0.74) / T-score (-1.3) / Z-score (0.9) Right Femoral Neck: g/cm2 (0.551) / T-score (-2.7) / Z-score (-0.3) The T-Scores on the most recent prior examination were: Lumbar Spine (L1-L4): There has been improvement of bone density since the previous examination. Left Femur Total: which represents an improvement of 1.7%. Right Femur Total: which represents an improvement of 2.7%. BD/Dexa Bone Density Study IMPRESSION: The patient is considered osteoporotic as outlined below according to World [place] Organization (WHO) criteria with a high fracture risk. There has been improvement of bone density since the previous examination. Reference Information: The T-score is the number of standard deviations above or below the standard which is normal for young adults at their peak bone mineral density. The World Health Organization (WHO) interprets the T-scores as follows: Above -1 Normal bone density Between -1 and -2.5 Osteopenia Equal to / or below -2.5 Osteoporosis As a practical clinical guideline, osteopenia may be graded as follows: Mild -1 through -1.5 Moderate -1.6 through -2.0 Severe -2.1 through -2.4 The Z-score is the number of standard deviations above or below age-matched controls. A Z-score of less than -1.5 would be considered abnormal. References: 1. NIH Osteoporosis and Related Bone Diseases www osteo.org 2. International Society for Clinical Densitometry www iscd.org 3. National Osteoporosis Foundation www nof.org Electronically Signed: Chris Romero MD at 10:19 EDT ,
== END | disposition home or self-care (01) ==
LOC: OPBD 10:24
PROVIDERS: PCP Internal Medicine; Visit Provider Nurse Practitioner Family
DX: M81.0 Age-related osteoporosis without current pathological fracture (principal); Z12.31 Encounter for screening mammogram for malignant neoplasm of breast
CPT/HCPCS: 77063; 77067; 77080

== ENCOUNTER → 2022-08-26 | Outpatient (CLI) | payer MEDICARE, SELFPAY ==
--- NOTE | 2022-08-26 09:53 | BI_ITS ---
MAMMOGRAPHY - BILATERAL SCREENING REASON FOR EXAM: Female, 81 years old. Routine annual screening examination. PERTINENT HISTORY: Daughter with breast cancer. Sister with breast cancer. TECHNIQUE: Digital bilateral breast jodi (3D mammographic acquisition) in the CC and MLO projections. 2-D mediolateral oblique (MLO) and craniocaudad (CC) views of both breasts were obtained. CAD: Full Field Digital Mammography with Computer Added Detection was performed. COMPARISON: Comparison is made with prior examination dated August 24, 2021 and August 13, 2020. FINDINGS: Breast Composition: The breasts are extremely dense, which lowers the sensitivity of mammography. There are no dominant masses or suspicious calcifications. No other significant abnormalities are identified. There has been no significant change since the prior study. BI/SCRN MAMM (CAD)W/JODI BILAT IMPRESSION: Stable bilateral screening mammogram. Yearly follow-up mammogram recommended. (A) ASSESSMENT CATEGORY: BIRADS Category 1: Negative. A letter regarding these results will be sent to the patient by the facility within 30 days. Approximately 10% of breast cancers are not detected by mammography. A normal mammogram should not delay biopsy of a clinically suspicious abnormality. [id number] Electronically Signed: Chris Romero MD at 12:19 EDT ,
== END | disposition home or self-care (01) ==
LOC: OPBI 09:51
PROVIDERS: PCP Internal Medicine; Referring Provider Nurse Practitioner Family; Visit Provider Nurse Practitioner Family
DX: Z12.31 Encounter for screening mammogram for malignant neoplasm of breast (principal)
CPT/HCPCS: 77063; 77067

== ENCOUNTER → 2023-08-31 | Outpatient (CLI) | payer MEDICARE, SELFPAY ==
--- NOTE | 2023-08-31 09:46 | BD_ITS ---
STUDY: DUAL ENERGY X-RAY ABSORPTIOMETRY / DXA REASON FOR EXAM: Female, 82 years old. 733.00OsteoporosisBONE DENSITY REASON FOR EXAM TECHNIQUE: Bone Mineral Density (BMD) measurements of lumbar spine and bilateral hips were obtained. COMPARISON: Comparison is made with prior study dated August 24, 2021. FINDINGS: Lumbar Spine (L1-L4): g/cm2 (0.893) / T-score (-1.7) / Z-score (1.2) Findings are suggestive of osteopenia with a moderate fracture risk. Left Femur Total: g/cm2 (0.758) / T-score (-1.5) / Z-score (0.8) Left Femoral Neck: g/cm2 (0.579) / T-score (-2.4) / Z-score (0.0) Right Femur Total: g/cm2 (0.780) / T-score (-1.3) / Z-score (0.9) Right Femoral Neck: g/cm2 (0.597) / T-score (-2.3) / Z-score (0.2) The T-Scores on the most recent prior examination were: Lumbar Spine (L1-L4): There has been worsening of bone density since the previous examination. Left Femur Total: which represents a worsening of 1.8. Right Femur Total: which represents a worsening of 0.6%. BD/Dexa Bone Density Study IMPRESSION: The patient is considered osteopenic as outlined below according to World [place] Organization (WHO) criteria with a fracture risk. There has been worsening of bone density since the previous examination. Reference Information: The T-score is the number of standard deviations above or below the standard which is normal for young adults at their peak bone mineral density. The World Health Organization (WHO) interprets the T-scores as follows: Above -1 Normal bone density Between -1 and -2.5 Osteopenia Equal to / or below -2.5 Osteoporosis As a practical clinical guideline, osteopenia may be graded as follows: Mild -1 through -1.5 Moderate -1.6 through -2.0 Severe -2.1 through -2.4 The Z-score is the number of standard deviations above or below age-matched controls. A Z-score of less than -1.5 would be considered abnormal. References: 1. NIH Osteoporosis and Related Bone Diseases www osteo.org 2. International Society for Clinical Densitometry www iscd.org 3. National Osteoporosis Foundation www nof.org Electronically Signed: Chris Romero MD at 15:03 EDT ,
--- NOTE | 2023-08-31 09:46 | BI_ITS ---
MAMMOGRAPHY - BILATERAL SCREENING REASON FOR EXAM: Female, 82 years old. Routine annual screening examination. PERTINENT HISTORY: Daughter with breast cancer. Sister with breast cancer. TECHNIQUE: Digital bilateral breast jodi (3D mammographic acquisition) in the CC and MLO projections. 2-D mediolateral oblique (MLO) and craniocaudad (CC) views of both breasts were obtained. CAD: Full Field Digital Mammography with Computer Added Detection was performed. COMPARISON: Comparison is made with prior study dated August 26, 2022 and August 24, 2021. FINDINGS: Breast Composition: The breasts are extremely dense, which lowers the sensitivity of mammography. There are no dominant masses or suspicious calcifications. No other significant abnormalities are identified. There has been no significant change since the prior study. BI/SCRN MAMM (CAD)W/JODI BILAT IMPRESSION: Stable bilateral screening mammogram. Yearly follow-up mammogram recommended. (A) ASSESSMENT CATEGORY: BIRADS Category 1: Negative. A letter regarding these results will be sent to the patient by the facility within 30 days. Approximately 10% of breast cancers are not detected by mammography. A normal mammogram should not delay biopsy of a clinically suspicious abnormality. [id number] Electronically Signed: Chris Romero MD at 10:52 EDT ,
== END | disposition home or self-care (01) ==
LOC: OPBD 09:45
PROVIDERS: PCP Internal Medicine; Referring Provider Nurse Practitioner Family; Visit Provider Nurse Practitioner Family
DX: Z12.31 Encounter for screening mammogram for malignant neoplasm of breast (principal); Z80.3 Family history of malignant neoplasm of breast; M81.0 Age-related osteoporosis without current pathological fracture
CPT/HCPCS: 77063; 77067; 77080

== ENCOUNTER → 2023-09-08 | Outpatient (CLI) | payer MEDICARE, SELFPAY ==
[2023-09-08 11:07] LABS: Vitamin D,25 Hydroxy 59.8 ng/mL
[2023-09-08 11:18] LABS: Cholesterol 209 mg/dL (200); High Density Lipoprotein 79 mg/dL; Triglycerides 110 mg/dL; Very Low Density Lipoprotein 22 mg/dL (5-40)
== END | disposition home or self-care (01) ==
LOC: LABSPEC 10:14
PROVIDERS: PCP Internal Medicine; Referring Provider Nurse Practitioner Family; Visit Provider Nurse Practitioner Family
DX: E55.9 Vitamin D deficiency, unspecified (principal); D69.6 Thrombocytopenia, unspecified; E78.5 Hyperlipidemia, unspecified
CPT/HCPCS: 80061; 82306

== ENCOUNTER → 2024-10-04 | Outpatient (CLI) | payer MEDICARE, SELFPAY ==
[2024-10-04 09:40] LABS: Hematocrit 42.2 % (37-47); Hemoglobin 13.4 g/dL (12.0-15.0); Immature Granulocytes Count 0.020 X10^3/uL (0.0-0.0); Mean Corp Hgb Conc 31.8 g/dL (32-36); Mean Corpuscular Volume 90.9 fL (81-99); Mean Platelet Vol. 13.7 fl (6.2-12.0); NRBC Flagged by Analyzer 0 % (0-5); POSITIVE COUNT YES; RBC Distribution Width CV 13.4 % (11.6-14.6); RBC Distribution Width SD 44.7 fl (35.1-43.9); Red Blood Count 4.64 M/mm3 (4.2-5.4); White Blood Count 7.2 K/mm3 (4.4-11.0)
[2024-10-04 10:12] LABS: AST(SGOT) 24 U/L (<=31); Alanine Aminotransfer ALT/SGPT 13 U/L (<=34); Albumin, Serum 4.3 g/dL (3.4-4.8); Alkaline Phosphatase 73 U/L (35-104); Anion Gap 11 (5-15); BUN 20 mg/dL (4-19); BUN/Creat Ratio 25.1 RATIO (10-20); Calcium,Total 9.8 mg/dL (7.6-11.0); Carbon Dioxide 25.7 mmol/L (21.0-32.0); Chloride 102 mmol/L (98-108); Cholesterol 212 mg/dL (<=200); Globulin 2.9 g/dL (2.2-4.2); Glucose 106 mg/dL (70-99); Low Density Lipoprotein Calc. 106 mg/dL; Potassium 4.6 mmol/L (3.3-5.1); Triglycerides 143 mg/dL; Very Low Density Lipoprotein 29 mg/dL (5-40); cholesterol:hdl ratio screen 2.74
[2024-10-04 10:19] LABS: Creatinine, Urine (random) 81.00 mg/dL (28.00-217.00); Microalbumin,Random Urine 69.4 mg/L (<20 mg/L)
[2024-10-04 10:20] LABS: Differential Indicated SCAN CRITERIA MET
== END | disposition home or self-care (01) ==
LOC: LAB 08:23
PROVIDERS: PCP Internal Medicine; Referring Provider Nurse Practitioner Family; Visit Provider Nurse Practitioner Family
DX: D69.6 Thrombocytopenia, unspecified (principal); R80.9 Proteinuria, unspecified; E78.5 Hyperlipidemia, unspecified; I10 Essential (primary) hypertension
CPT/HCPCS: 36415; 80053; 80061; 82043; 82570; 85025

== ENCOUNTER → 2024-10-28 | Outpatient (CLI) | payer MEDICARE, SELFPAY ==
[2024-10-28 11:41] LABS: Platelet Count 218 K/mm3 (150-450)
== END | disposition home or self-care (01) ==
PROVIDERS: PCP Internal Medicine; Referring Provider Nurse Practitioner Family; Visit Provider Nurse Practitioner Family
DX: D69.6 Thrombocytopenia, unspecified (principal)
CPT/HCPCS: 36415; 85049

== ENCOUNTER → 2025-01-13 | Outpatient (CLI) | payer MEDICARE, SELFPAY | END | disposition home or self-care (01) | LOC: LABSPEC 16:45 | PROVIDERS: PCP Internal Medicine; Referring Provider Family Medicine; Visit Provider Family Medicine | DX: N39.0 Urinary tract infection, site not specified (principal) | CPT/HCPCS: 87077; 87086; 87088; 87186 ==